=== PATIENT | male | born 1965 | race Hispanic/Latino ===

== ENCOUNTER 2018-05-08 17:02 | Emergency (ER) | payer OTHER ==
[2018-05-08] MEDS ORDERED: diphenhydrAMINE 50 MG/ML VIAL ONE (17:12)
[2018-05-08] MEDS ORDERED: Famotidine/PF 20 mg/2ml Vial ONE (17:12)
== END 2018-05-08 21:13 | disposition home or self-care (01) ==
LOC: ERS 17:02
DX: L50.0 Allergic urticaria (principal); I10 Essential (primary) hypertension; E11.9 Type 2 diabetes mellitus without complications; E78.5 Hyperlipidemia, unspecified; Z79.4 Long term (current) use of insulin; Z79.899 Other long term (current) drug therapy
CPT/HCPCS: 96374; 96375; J1200; S0028